=== PATIENT | female | born 1975 | race African-American/Black ===

== ENCOUNTER 2021-01-16 04:47 | Inpatient (IN) ==
[2021-01-08 10:58] LABS: Bilirubin,Urine Negative (Negative); Blood, Urine Negative (Negative); Glucose,Urine (UA) Negative (Negative); Ketones,Urine Negative (Negative); Mucus,Urine Occasional /LPF (Occasional); Nitrite,Urine Negative (Negative); Protein,Urine Negative; RBC,Urine 1 /HPF (0-4); Squamous Epithelial Cell,Urine Occasional /HPF (0-10); Urine Appearance CLEAR (Clear); Urine Color Yellow (Yellow); Urine Specific Gravity 1.009 (1.001-1.035); Urine Urobilinogen < 2.0 EU/DL (0.2-1.0)
[2021-01-08 11:01] LABS: Basophils # 0.1 10*3/uL (0.0-0.2); Basophils % 0.6 % (0.0-0.8); Eosinophils # 0.2 10*3/uL (0.0-0.87); Eosinophils % 2.4 % (0.00-10.9); Hematocrit 36.6 VOL% (35.7-47.0); Immature Granulocytes % 0.5 %; Immature Granulocytes Absolute 0.04 #; Lymphocytes # 2.3 10*3/uL (1.4-4.0); Lymphocytes % 28.9 % (21.3-54.2); Mean Corpuscular HGB Conc 32.8 GM/DL (32-36); Mean Platelet Volume 10.2 FL (9.6-12.0); Monocytes % 8.5 % (1.7-12.7); Neutrophils % 59.1 % (38.7-73.9); Platelet Count 394 T/CUMM (130-400); Red Blood Count 3.98 MC/CUMM (3.8-5.5); Red Cell Distribution Width 14.4 % (9.3-17.3); White Blood Count 7.8 T/CUMM (4-12)
[2021-01-08 11:31] LABS: Albumin 3.5 G/DL (3.4-5.0); Calcium 9.4 MG/DL (8.5-10.1); Osmolality,Calculated 277.4 MOS/KG (273-304); Potassium 2.7 MMOL/L (3.5-5.1); Risk Ratio 2.73; Total Protein 7.5 G/DL (6.4-8.2); VLDL Cholesterol 15.2 MG/DL
[2021-01-08 14:09] LABS: HIV Antigen/Antibody Result Nonreactive (Nonreactive)
[2021-01-15] MEDS: POTASSIUM CHLORIDE RIDER 10 MEQ/100 ML PREMIX IV PRN ×2 (12:27→13:30)
[2021-01-15] MEDS: POTASSIUM CHLORIDE 20 MEQ TABLET PO PRN ×3 (16:54→22:47)
[~2021-01-16 04:47] MED LIST: ACETAMINOPHEN 500 MG TABLET PO ONE; AMPICILLIN/SULBACTAM 3,000 MG in SODIUM CHLORIDE 0.9% 100 ML IV ONE; DIAZEPAM 5 MG TABLET PO ONE; FAMOTIDINE 20 MG TABLET PO ONE; GABAPENTIN 400 MG CAPSULE PO ONE; LACTATED RINGERS 1,000 ML IV SCH
[2021-01-16] MEDS ORDERED: DIAZEPAM 5 MG TABLET PO ONE (12:26)
[2021-01-16] MEDS ORDERED: FAMOTIDINE 20 MG TABLET PO ONE (12:27)
[2021-01-16] MEDS ORDERED: GABAPENTIN 400 MG CAPSULE PO ONE (12:29)
[2021-01-16] MEDS ORDERED: MIDAZOLAM 2 MG/2 ML VIAL ONE (13:22)
[2021-01-16] MEDS ORDERED: BUPIVACAINE MPF 0.25% 30 ML VIAL ONE (13:22)
[2021-01-16] MEDS ORDERED: fentaNYL 100 MCG/2 ML VIAL ONE (13:22)
[2021-01-16] MEDS ORDERED: propofoL 200 MG/20 ML VIAL IV ONE (14:15)
[2021-01-16] MEDS ORDERED: ROCURONIUM 50 MG/5 ML VIAL IV ONE (14:15)
[2021-01-16] MEDS ORDERED: LIDOCAINE 2% 5 ML VIAL ONE (14:15)
[2021-01-16] MEDS ORDERED: DEXAMETHASONE 4 MG/1 ML VIAL ONE (14:26)
[2021-01-16] MEDS ORDERED: ceFAZolin 1,000 MG VIAL ONE (14:29)
[2021-01-16 14:52] LABS: Bilirubin,Urine Negative (Negative); Blood, Urine Negative (Negative); Glucose,Urine (UA) Negative (Negative); Ketones,Urine Negative (Negative); Mucus,Urine Occasional /LPF (Occasional); Nitrite,Urine Negative (Negative); Protein,Urine Negative; RBC,Urine <1 /HPF (0-4); Squamous Epithelial Cell,Urine Occasional /HPF (0-10); Urine Appearance CLEAR (Clear); Urine Color Straw (Yellow); Urine Specific Gravity 1.009 (1.001-1.035); Urine Urobilinogen < 2.0 EU/DL (0.2-1.0)
[2021-01-16] MEDS ORDERED: ONDANSETRON 4 MG/2 ML VIAL ONE (15:14)
[2021-01-16] MEDS ORDERED: PHENYLEPHRINE 1 MG/10 ML SYRINGE IV ONE (15:14)
[2021-01-16] MEDS ORDERED: PROMETHAZINE INJ 25 MG in SODIUM CHLORIDE 0.9% 50 ML IV PRN (15:14)
[2021-01-16] MEDS ORDERED: diphenhydrAMINE 50 MG/1 ML VIAL IV PRN (15:14)
[2021-01-16] MEDS ORDERED: MEPERIDINE 50 MG/1 ML VIAL IV PRN (15:14)
[2021-01-16] MEDS ORDERED: SEVOFLURANE 1 UNIT/15 MINUTE INH ONE ×6 (15:14→15:34)
[2021-01-16] MEDS ORDERED: ONDANSETRON 4 MG/2 ML VIAL IV PRN ×2 (15:14→16:06)
[2021-01-16] MEDS ORDERED: GLYCOPYRROLATE 0.4 MG/2 ML VIAL ONE (15:28)
[2021-01-16] MEDS ORDERED: NEOSTIGMINE 10 MG/10 ML VIAL ONE (15:29)
[2021-01-16] MEDS ORDERED: ACETAMINOPHEN INJ 1,000 MG/100 ML VIAL IV ONE (15:34)
[2021-01-16] MEDS: HYDROmorphone 2 MG/1 ML VIAL IV PRN ×4 (16:00→16:15)
[2021-01-16] MEDS ORDERED: BISACODYL 10 MG SUPP RECTAL PRN (16:06)
[2021-01-16] MEDS ORDERED: BENZOCAINE/MENTHOL LOZENGE 18/BOX PO PRN (16:06)
[2021-01-16] MEDS ORDERED: ACETAMINOPHEN 325 MG TABLET PO PRN (16:06)
[2021-01-16] MEDS ORDERED: LACTATED RINGERS 1,000 ML IV SCH (16:30)
[2021-01-16] MEDS ORDERED: HYDROmorphone 2 MG/1 ML VIAL IV PRN (16:35)
[2021-01-16] MEDS: IBUPROFEN 800 MG TABLET PO PRN (21:44)
[2021-01-17 05:46] LABS: Basophils % 0.1 % (0.0-0.8); Hematocrit 33.1 VOL% (35.7-47.0); Hemoglobin 10.7 GM/DL (12.0-16.0); Immature Granulocytes % 0.7 %; Immature Granulocytes Absolute 0.11 #; Lymphocytes # 1.2 10*3/uL (1.4-4.0); Lymphocytes % 7.4 % (21.3-54.2); Mean Corpuscular HGB Conc 32.3 GM/DL (32-36); Mean Corpuscular Volume 93.8 FL (87-102); Mean Platelet Volume 10.1 FL (9.6-12.0); Monocytes % 5.4 % (1.7-12.7); Neutrophils % 86.4 % (38.7-73.9); Platelet Count 342 T/CUMM (130-400); Red Blood Count 3.53 MC/CUMM (3.8-5.5); Red Cell Distribution Width 14.4 % (9.3-17.3); White Blood Count 16.7 T/CUMM (4-12)
[2021-01-17] MEDS: SIMETHICONE CHEW 80 MG TABLET PO PRN ×3 (08:42→20:58)
[2021-01-17] MEDS: MAGNESIUM HYDROXIDE SUSP 30 ML UDCUP PO PRN ×2 (08:42→20:58)
[2021-01-17] MEDS: DOCUSATE SODIUM 100 MG CAPSULE PO PRN ×2 (08:42→20:58)
[2021-01-17] MEDS: METOCLOPRAMIDE 10 MG TABLET PO SCH ×2 (08:42→17:25)
[2021-01-17] MEDS: IBUPROFEN 800 MG TABLET PO PRN (15:45)
[2021-01-18] MEDS: METOCLOPRAMIDE 10 MG TABLET PO SCH ×2 (01:23→08:17)
[2021-01-18] MEDS: MAGNESIUM HYDROXIDE SUSP 30 ML UDCUP PO PRN (08:17)
[2021-01-18] MEDS: DOCUSATE SODIUM 100 MG CAPSULE PO PRN (08:17)
[2021-01-18 08:39] VITALS: BP 118/80
[2021-01-18] MEDS ORDERED: hydroCHLOROthiazide 12.5 MG CAPSULE PO SCH (09:00)
[2021-01-18] MEDS ORDERED: amLODIPine 10 MG TABLET PO SCH (09:00)
[2021-01-18] MEDS ORDERED: ESTRADIOL VALERATE IM 100 MG/5 ML VIAL IM ONE (09:19)
[2021-01-18] MEDS: IBUPROFEN 800 MG TABLET PO PRN (10:45)
== END 2021-01-18 13:00 | disposition home or self-care (01) | DRG 743 ==
LOC: N.OR 04:47 → N.OB 04:51
PROVIDERS: ADMIT Obstetrics & Gynecology; ATTEND Obstetrics & Gynecology